=== PATIENT | female | born 1935 | race Caucasian/White ===

== ENCOUNTER 2017-01-18 07:45 | Day surgery (SDC) | payer MEDICARE, BC ==
[~2017-01-18] VITALS: Ht 175.3 cm; Wt 63.5 kg
--- NOTE | 2017-01-18 07:08 | Anethesia Preoperative Eval ---
Anesthesia Pre-op PMH/ROS General Date of Evaluation: Jan 18, 2017 Anesthesiologist: Miguel ASA Score: ASA 3 Mallampati Score Class I : Soft palate, uvula, fauces, pillars visible Class II: Soft palate, uvula, fauces visible Class III: Soft palate, base of uvula visible Class IV: Only hard plate visible Mallampati Classification: Class II Surgeon: Yareli Diagnosis: Left breast cancer Surgical Procedure: Left breast quadrectomy Anesthesia History: none Family History: no anesthesia problems Allergies: Coded Allergies: SULFA (SULFONAMIDE ANTIBIOTICS) (Verified Allergy, Intermediate, 01/18/17) swelling,itching Medications: see eMAR Past Medical History PSxH Narrative: lap appy, rotator cuff repair Anesthesia Pre-op Phys. Exam Physician Exam see chart Constitutional: NAD Cardiovascular: RRR Respiratory: CTA Airway Exam Mallampati Score: Class II MO: limited ROM: limited Anesthesia Pre-op A/P Labs see chart Studies Pre-op Studies: EKG - sr Risk Assessment & Plan Assessment: ASA III Plan: GA Status Change Before Surgery: No Pre-Antibiotics Drug: JOHNNIE CARDENAS M.D. Jan 18, 2017 07:07
[2017-01-18] MEDS ORDERED: LISINOPRIL20 MG ORAL (08:39)
[2017-01-18] MEDS ORDERED: PRAVASTATIN SOD40 M1 ORAL (08:39)
[2017-01-18] MEDS ORDERED: Bupivacaine w/Epi 0.5% 30ml Vial INJ ONE (08:39)
[2017-01-18] MEDS ORDERED: IMDUR PO (08:39)
[2017-01-18] MEDS ORDERED: AMLODIPINE BESY10 MG ORAL (08:39)
[2017-01-18] MEDS ORDERED: HYDROCHLOROTHIA25 MG ORAL (08:39)
[2017-01-18] MEDS ORDERED: DETROL2 MG ORAL (08:39)
[2017-01-18] MEDS ORDERED: METOPROLOL TART50 M1 ORAL (08:39)
[2017-01-18] MEDS ORDERED: BUSPIRONE HCL15 MG ORAL (08:39)
[2017-01-18] MEDS ORDERED: LEXAPRO20 MG ORAL (08:39)
[2017-01-18 08:48] VITALS: BP 95/46
[2017-01-18 09:25] VITALS: BP 97/48
[2017-01-18] MEDS ORDERED: HYDROmorphone 1mg/ml Carpuject SUBQ PRN (09:30)
[2017-01-18] MEDS ORDERED: Tylenol #3 tab (300mg/30mg) ORAL PRN (09:30)
--- NOTE | 2017-01-18 09:38 | Brief Operative Note ---
Immediate Post Operative Note Operative Note Pre-op Diagnosis: cholelithiasis, chronic cholecystitis Procedure: laparoscopic cholecystectomy Post-op Diagnosis: same as pre-op Surgeon: courtney Warp Knitter: melissa Anesthesiologist: jude Anesthesia: general Specimen: yes - gb Complications: none Condition: stable Estimated Blood Loss: minimal Drains: none Implant(s) used?: No SEBASTIÁN CRUZ Jan 18, 2017 09:38
== END 2017-01-18 10:00 | disposition home or self-care (01) ==
LOC: SUR 07:45
DX: C50.912 Malignant neoplasm of unspecified site of left female breast (principal); Z53.8 Procedure and treatment not carried out for other reasons; N32.81 Overactive bladder; G89.29 Other chronic pain; Z88.2 Allergy status to sulfonamides; Z88.8 Allergy status to other drugs, medicaments and biological substances

== ENCOUNTER 2017-03-06 19:04 | Inpatient (IN) | payer MEDICARE, BC ==
[~2017-03-06] VITALS: Ht 175.3 cm; Wt 63.5 kg
[~2017-03-06 19:04] MED LIST: AMLODIPINE BESY10 MG ORAL; BUSPIRONE HCL15 MG ORAL; DETROL2 MG ORAL; HYDROCHLOROTHIA25 MG ORAL; IMDUR PO; LEXAPRO20 MG ORAL; LISINOPRIL20 MG ORAL; METOPROLOL TART50 M1 ORAL; PRAVASTATIN SOD40 M1 ORAL
--- NOTE | 2017-03-06 19:59 | Emergency Room Report ---
History of Present Illness General Chief Complaint: Lower Extremity Injury Source: Patient Present Illness HPI This patient presents at the request of her primary care physician. The patient is postop day 5 from a left mastectomy. She has breast cancer. She was discharged from [facility] into the care of her elderly . He states that he has been able to care for her, however, over the past 2 days she has had confusion and had been pulling at her NONA drains in her left chest wall and pulling off her post surgical dressings. She fell twice early this morning. She has been on narcotics. She has a history of chronic pain and chronic narcotic use. She has been taking maximum dosages of the Percocet. He hasn't states that her confusion is usually after the Percocet. She fell this morning and was seen at [facility]. She is found to have a left fibula fracture and underwent splinting. She left from there AGAINST MEDICAL ADVICE because her primary care physician does not admit there. Further review of the discharge paperwork shows that this patient underwent a CT of the C-spine, CT head, left ankle x-ray and chest x-ray. The left ankle showed a left fibula fracture. He has been is concerned that he cannot care for her and that she is falling. He feels that she is not safe in her home. Allergies: Coded Allergies: SULFA (SULFONAMIDE ANTIBIOTICS) (Verified Allergy, Intermediate, 01/18/17) swelling,itching Patient History Past Medical History: see triage record, GERD, other - Arthritis, chronic pain Social History: Denies: smoking, alcohol use, drug use Now: No Reviewed Nursing Documentation: PMH: Agreed, PSxH: Agreed Nursing Documentation-PMH Past Medical History: No History, Except For Hx Cardiac Problems: Yes Hx Hypertension: Yes Hx Cancer: No Hx Gastrointestinal Problems: Yes Hx Neurological Problems: No Review of Systems All Other Systems: negative except mentioned in HPI Physical Exam Vital Signs Date Time Temp Pulse Resp B/P (MAP) Pulse Ox O2 Delivery O2 Flow Rate FiO2 03/06/17 19:23 98.8 78 16 163/71 99 Room Air Sp02 EP Interpretation: reviewed, normal General Appearance: no apparent distress, alert, GCS 15, non-toxic Head: normocephalic, other - Ecchymosis on L. forehead Eyes: bilateral eye normal inspection, bilateral eye PERRL ENT: hearing grossly normal, normal pharynx, no angioedema, normal voice Neck: full range of motion, supple/symm/no masses Respiratory: chest non-tender, lungs clear, normal breath sounds, no respiratory distress, no retraction, no accessory muscle use, speaking full sentences, other - Ecchymosis L. chest wall. Post-operative wound with jaja. x2 NONA drains w/ serosanguinous drainage. Cardiovascular #1: regular rate, rhythm, no edema, systolic murmur Gastrointestinal: normal bowel sounds, non tender, soft, non-distended, no guarding, no rebound Rectal: deferred Musculoskeletal: back normal, other - Stirrup splint on L. ankle/foot. Neurologic: alert, oriented x3, responsive, motor strength/tone normal, sensory intact, speech normal Psychiatric: judgement/insight normal, mood/affect normal, no suicidal/ homicidal ideation Skin: warm/dry, well hydrated, other - Ecchymosis as described above. Medical Decision Making Diagnostic Impression: Primary Impression: Fibula fracture Additional Impressions: Uncontrolled pain Frequent falls Adverse effect of narcotic drug ER Course This patient presents with a left fibular fracture and frequent falls. This elderly female is unsafe at her home. She likely is having fracture related to a strong doses of narcotics and is dangerous to herself with pulling off her postoperative dressings and NONA drains that are placed in her chest wall. She has an ankle fracture. She is confused to removing medical devices. He has been is unable to provide appropriate care for her. She is admitted secondary to danger to her self and for a possible revision of her living situation versus placement in a correction facility. Laboratory Tests Test 03/06/17 20:50 White Blood Count 5.8 K/UL (4.8-10.8) Red Blood Count 3.01 M/UL (4.20-5.40) L Hemoglobin 10.9 G/DL (12.0-16.0) L Hematocrit 32.4 % (37.0-47.0) L Mean Corpuscular Volume 107 FL (80-99) H Mean Corpuscular Hemoglobin 36.0 PG (27.0-31.0) H Mean Corpuscular Hemoglobin Concent 33.6 G/DL (32.0-36.0) Red Cell Distribution Width 14.1 % (11.6-14.8) Platelet Count 169 K/UL (150-450) Mean Platelet Volume 5.8 FL (6.5-10.1) L Neutrophils (%) (Auto) 70.9 % (45.0-75.0) Lymphocytes (%) (Auto) 19.4 % (20.0-45.0) L Monocytes (%) (Auto) 7.8 % (1.0-10.0) Eosinophils (%) (Auto) 0.4 % (0.0-3.0) Basophils (%) (Auto) 1.5 % (0.0-2.0) Prothrombin Time 11.4 SEC (9.30-11.50) Prothrombin Time INR 1.1 (0.9-1.1) PTT 28 SEC (23-33) Sodium Level 138 mEQ/L (135-145) Potassium Level 4.1 mEQ/L (3.4-4.9) Chloride Level 105 mEQ/L (98-107) Carbon Dioxide Level 22 mEQ/L (20-30) Anion Gap 11 (5-15) Blood Urea Nitrogen 10 mg/dL (7-23) Creatinine 0.6 mg/dL (0.5-0.9) Estimate Glomerular Filtration Rate mL/min (>60) Glucose Level 86 mg/dL (74-106) Calcium Level 9.4 mg/dL (8.6-10.2) Total Bilirubin 0.8 mg/dL (0.0-1.2) Aspartate Amino Transferase (AST) 28 U/L (5-40) Alanine Aminotransferase (ALT) 5 U/L (3-33) Alkaline Phosphatase 113 U/L (35-104) H Total Protein 5.1 g/dL (6.6-8.7) L Albumin 2.6 g/dL (3.5-5.2) L Globulin 2.5 g/dL Albumin/Globulin Ratio 1.0 (1.0-2.7) Last Vital Signs Date Time Temp Pulse Resp B/P (MAP) Pulse Ox O2 Delivery O2 Flow Rate FiO2 03/06/17 19:23 98.8 78 16 163/71 99 Room Air Disposition: ADMITTED INPATIENT Condition: Serious Referrals: DANIEL COCHRAN (PCP) RUBENS DE PAZ D.O. Mar 06, 2017 19:58
[2017-03-06 21:16] LABS: BASOPHILS % (AUTO) 1.5 % (0.0-2.0); EOSINOPHILS % (AUTO) 0.4 % (0.0-3.0); LYMPHOCYTES % (AUTO) 19.4 % (20.0-45.0); MEAN CORPUSCULAR HGB CONC 33.6 G/DL (32.0-36.0); MEAN CORPUSCULAR VOLUME 107 FL (80-99); MEAN PLATELET VOLUME 5.8 FL (6.5-10.1); MONOCYTES % (AUTO) 7.8 % (1.0-10.0); NEUTROPHILS % (AUTO) 70.9 % (45.0-75.0); PLATELET COUNT 169 K/UL (150-450); RED BLOOD COUNT 3.01 M/UL (4.20-5.40); RED CELL DISTRIBUTION WIDTH 14.1 % (11.6-14.8); WHITE BLOOD COUNT 5.8 K/UL (4.8-10.8)
[2017-03-06 21:32] LABS: INR 1.1 (0.9-1.1); PROTHROMBIN TIME 11.4 SEC (9.30-11.50)
[2017-03-06 21:33] LABS: ALANINE AMINOTRANSFERASE 5 U/L (3-33); ANION GAP 11 (5-15); ASPARTATE AMINO TRANSFERASE 28 U/L (5-40); CALCIUM 9.4 mg/dL (8.6-10.2); CARBON DIOXIDE 22 mEQ/L (20-30); CHLORIDE 105 mEQ/L (98-107); CREATININE 0.6 mg/dL (0.5-0.9); HEMOLYSIS 97; POTASSIUM 4.1 mEQ/L (3.4-4.9); SODIUM 138 mEQ/L (135-145); TOTAL PROTEIN 5.1 g/dL (6.6-8.7)
[2017-03-07] VITALS: BP 142/64
[2017-03-07 04:00] VITALS: BP 142/68
[2017-03-07 06:37] LABS: BASOPHILS % (AUTO) 1.6 % (0.0-2.0); EOSINOPHILS % (AUTO) 1.1 % (0.0-3.0); LYMPHOCYTES % (AUTO) 26.7 % (20.0-45.0); MEAN CORPUSCULAR HEMOGLOBIN 35.4 PG (27.0-31.0); MEAN CORPUSCULAR HGB CONC 33.6 G/DL (32.0-36.0); MEAN CORPUSCULAR VOLUME 105 FL (80-99); MEAN PLATELET VOLUME 5.5 FL (6.5-10.1); NEUTROPHILS % (AUTO) 60.5 % (45.0-75.0); PLATELET COUNT 169 K/UL (150-450); RED BLOOD COUNT 2.83 M/UL (4.20-5.40); RED CELL DISTRIBUTION WIDTH 13.8 % (11.6-14.8); WHITE BLOOD COUNT 4.7 K/UL (4.8-10.8)
[2017-03-07 07:04] LABS: ALANINE AMINOTRANSFERASE 5 U/L (3-33); ALBUMIN/GLOBULIN RATIO 1.3 (1.0-2.7); ANION GAP 9 (5-15); ASPARTATE AMINO TRANSFERASE 19 U/L (5-40); CALCIUM 8.8 mg/dL (8.6-10.2); CARBON DIOXIDE 24 mEQ/L (20-30); CHLORIDE 104 mEQ/L (98-107); CREATININE 0.6 mg/dL (0.5-0.9); HEMOLYSIS 5; POTASSIUM 4.2 mEQ/L (3.4-4.9); SODIUM 137 mEQ/L (135-145); TOTAL PROTEIN 4.6 g/dL (6.6-8.7)
[2017-03-07 07:14] LABS: THYROID STIMULATING HORMONE 0.511 uIU/mL (0.300-4.500)
[2017-03-07 08:00] VITALS: BP 161/66
[2017-03-07] MEDS ORDERED: NAMENDA10 MG ORAL (10:30)
[2017-03-07] MEDS ORDERED: VITAMIN D-40400 UNIT ORAL (10:30)
[2017-03-07] MEDS ORDERED: PRAVACHOL20 MG ORAL (10:30)
[2017-03-07] MEDS ORDERED: VITAMIN C250 MG ORAL (10:30)
--- NOTE | 2017-03-07 10:44 | General Surgery Progress Note ---
General Surgery-Progress Note Subjective Procedure Performed left modified radical mastectomy at [facility] 6 days ago. Symptoms: improved Additional Comments Pt had L Mod radiacal mastectomy for large left breast lobular CA, drains still in place. She became confused las 2 nights and fell and had a Fracture of left tibia. 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 Objective Last 24 Hour Vital Signs Date Time Temp Pulse Resp B/P (MAP) Pulse Ox O2 Delivery O2 Flow Rate FiO2 03/07/17 08:00 98.1 76 18 161/66 97 Room Air 03/07/17 04:00 98.8 80 20 142/68 98 Room Air 03/07/17 00:00 98.2 77 20 142/64 98 Room Air 03/06/17 23:30 89 20 133/89 99 Room Air 03/06/17 19:23 98.8 78 16 163/71 99 Room Air I&O hemovac about 100 cc/24 hrs Dressing: dry Wound: clean Drains: hemovac Cardiovascular: RSR Respiratory: clear Abdomen: soft, non-tender, present bowel sounds Extremities: other - left leg in inmobilizing splint, toes OK Laboratory Tests Test 03/06/17 20:50 03/07/17 06:15 White Blood Count 5.8 K/UL (4.8-10.8) 4.7 K/UL (4.8-10.8) L Red Blood Count 3.01 M/UL (4.20-5.40) L 2.83 M/UL (4.20-5.40) L Hemoglobin 10.9 G/DL (12.0-16.0) L 10.0 G/DL (12.0-16.0) L Hematocrit 32.4 % (37.0-47.0) L 29.8 % (37.0-47.0) L Mean Corpuscular Volume 107 FL (80-99) H 105 FL (80-99) H Mean Corpuscular Hemoglobin 36.0 PG (27.0-31.0) H 35.4 PG (27.0-31.0) H Mean Corpuscular Hemoglobin Concent 33.6 G/DL (32.0-36.0) 33.6 G/DL (32.0-36.0) Red Cell Distribution Width 14.1 % (11.6-14.8) 13.8 % (11.6-14.8) Platelet Count 169 K/UL (150-450) 169 K/UL (150-450) Mean Platelet Volume 5.8 FL (6.5-10.1) L 5.5 FL (6.5-10.1) L Neutrophils (%) (Auto) 70.9 % (45.0-75.0) 60.5 % (45.0-75.0) Lymphocytes (%) (Auto) 19.4 % (20.0-45.0) L 26.7 % (20.0-45.0) Monocytes (%) (Auto) 7.8 % (1.0-10.0) 10.0 % (1.0-10.0) Eosinophils (%) (Auto) 0.4 % (0.0-3.0) 1.1 % (0.0-3.0) Basophils (%) (Auto) 1.5 % (0.0-2.0) 1.6 % (0.0-2.0) Prothrombin Time 11.4 SEC (9.30-11.50) Prothromb Time International Ratio 1.1 (0.9-1.1) Activated Partial Thromboplast Time 28 SEC (23-33) Sodium Level 138 mEQ/L (135-145) 137 mEQ/L (135-145) Potassium Level 4.1 mEQ/L (3.4-4.9) 4.2 mEQ/L (3.4-4.9) Chloride Level 105 mEQ/L (98-107) 104 mEQ/L (98-107) Carbon Dioxide Level 22 mEQ/L (20-30) 24 mEQ/L (20-30) Anion Gap 11 (5-15) 9 (5-15) Blood Urea Nitrogen 10 mg/dL (7-23) 8 mg/dL (7-23) Creatinine 0.6 mg/dL (0.5-0.9) 0.6 mg/dL (0.5-0.9) Estimat Glomerular Filtration Rate mL/min (>60) mL/min (>60) Glucose Level 86 mg/dL (74-106) 82 mg/dL (74-106) Calcium Level 9.4 mg/dL (8.6-10.2) 8.8 mg/dL (8.6-10.2) Total Bilirubin 0.8 mg/dL (0.0-1.2) 0.8 mg/dL (0.0-1.2) Aspartate Amino Transf (AST/SGOT) 28 U/L (5-40) 19 U/L (5-40) Alanine Aminotransferase (ALT/SGPT) 5 U/L (3-33) 5 U/L (3-33) Alkaline Phosphatase 113 U/L (35-104) H 112 U/L (35-104) H Total Protein 5.1 g/dL (6.6-8.7) L 4.6 g/dL (6.6-8.7) L Albumin 2.6 g/dL (3.5-5.2) L 2.6 g/dL (3.5-5.2) L Globulin 2.5 g/dL 2.0 g/dL Albumin/Globulin Ratio 1.0 (1.0-2.7) 1.3 (1.0-2.7) Thyroid Stimulating Hormone (TSH) 0.511 uIU/mL (0.300-4.500) Imaging pending fibular xray results. Additional Comments S/P left mastectomy for large lobular CA Confusion, altered mental status and fall with left fibular fx. Hx Percocet and wine use, ? abuse. Alzheimer's changes. HTN Assessment Additional Comments Cont drain care, Ortho consult, once stabilized and definitive leg care started , transfer to [facility] for further care. Discussed with nurses and Dr. Lagunas. PMD is Dr. Walton who wanted pt transferred here. (but does not come here anymore) SEBASTIÁN CRUZ Mar 07, 2017 10:44
--- NOTE | 2017-03-07 10:59 | Diagnostic Imaging Report ---
Indication: TRAUMA, fell 3 times Technique: 2 views of the right tibia and fibula Comparison: none Findings: Overlying splint obscures bony detail. There is a nondisplaced vertically oriented fracture of the distal fibula. This is better visualized on concurrent ankle radiograph. No definite tibial fracture. Impression: Positive for nondisplaced distal fibular fracture
--- NOTE | 2017-03-07 11:08 | Diagnostic Imaging Report ---
Indication: TRAUMA Technique: 3 views of the left ankle Comparison: none Findings: There is a vertically oriented fracture of the distal fibula. This is nondisplaced. No definite tibial fracture or talar fracture. Bones are somewhat osteoporotic. Overlying splint obscures bony detail to some extent. Impression: Positive for distal fibular fracture
[2017-03-07] MEDS: Metoprolol 25mg tab ORAL SCH ×2 (11:50→20:06)
[2017-03-07 11:57] VITALS: BP 140/77
--- NOTE | 2017-03-07 13:14 | Consultation ---
Consult Note Consult Note 81 yo female s/p breast surgery with dizziness at home last night. fell and sustained non displaced distal fibular fracture Assessment/Plan left ankle non displaced distal fibular fracture no surgery needed. splint immobilization x1 week with transition to cast for 4 full weeks followed by physical therapy. can follow as an outpt NISHA SAMSON Mar 07, 2017 13:14
[2017-03-07 15:57] VITALS: BP 142/64
[2017-03-07] MEDS: BusPIRone 5mg Tab ORAL SCH (18:00)
--- NOTE | 2017-03-07 19:16 | History & Physical ---
History and Physical History & Physicial dictated GIANFRANCO LANTIGUA Mar 07, 2017 19:16
[2017-03-07 20:00] VITALS: BP 151/71
[2017-03-07] MEDS: Memantine 10mg tab ORAL SCH (20:07)
[2017-03-07] MEDS: Multivitamin w/Minerals tab ORAL SCH (20:07)
--- NOTE | 2017-03-07 23:45 | Consultation ---
DATE OF CONSULTATION: ORTHOPEDIC CONSULTATION History Of Present Illness: The patient is a very pleasant 81-year-old female, who had a mechanical fall in her home yesterday sustaining a left ankle nondisplaced distal fibular fracture. The patient recently had breast surgery and was discharged home. She woke up in pain and wants to take medications. She has some dizziness and had a trip and fall at home. Her brought her to the hospital and she was noted to have ankle fracture for which Orthopedic consult was called. The patient denies numbness or tingling. She is already in a well-padded splint. PAST MEDICAL HISTORY: Breast cancer and GERD. PAST SURGICAL HISTORY: Recent breast surgery. CURRENT MEDICATIONS: Please see chart. Social History: She does not smoke or drink. She lives at home with her . She is independent with her activities. Review Of Systems: Reviewed. They are consistent with some pain around her left breast and chest though she had mastectomy. She has some left ankle pain as well. She denies numbness or tingling. She denies any fever, chills, cough, or shortness of breath. PHYSICAL EXAMINATION: General: She is a very pleasant woman. She is cooperative with examination. She is alert and oriented. Extremities: Her left lower extremity is in a well-padded splint and she is neurovascularly intact and able to wiggle her toes. Diagnostic Data: X-rays were reviewed. There is a nondisplaced distal fibular fracture without disruption of the mortise. Impression: Left ankle nondisplaced distal fibular fracture with intact mortise. Discussion: At this time, I discussed with the patient and her my findings. We can treat nonoperatively with this and keep her in a splint for 7 to 10 days, at which point we will exchange her splint for a well-padded cast for a total of four weeks immobilization. After the cast, she will likely be in a CAM walker for short time as we restart physical therapy and allow her to be progressively weightbearing. We will ask the patient to elevate and ice this and from an orthopedic standpoint, she is stable for discharge once cleared medically. We will follow up with her on an outpatient basis. Geovani Rodriguez M.D. Flakito Arora DR: Cony JOB#: [id number] CC:
[2017-03-08 04:00] VITALS: BP 175/89
[2017-03-08 07:52] LABS: ALANINE AMINOTRANSFERASE 5 U/L (3-33); ALBUMIN/GLOBULIN RATIO 1.2 (1.0-2.7); ANION GAP 10 (5-15); ASPARTATE AMINO TRANSFERASE 17 U/L (5-40); CALCIUM 8.9 mg/dL (8.6-10.2); CARBON DIOXIDE 24 mEQ/L (20-30); CHLORIDE 106 mEQ/L (98-107); CREATININE 0.5 mg/dL (0.5-0.9); HEMOLYSIS 3; POTASSIUM 3.4 mEQ/L (3.4-4.9); SODIUM 140 mEQ/L (135-145); TOTAL PROTEIN 4.8 g/dL (6.6-8.7)
[2017-03-08 07:56] LABS: BASOPHILS % (AUTO) 1.3 % (0.0-2.0); EOSINOPHILS % (AUTO) 1.1 % (0.0-3.0); LYMPHOCYTES % (AUTO) 23.4 % (20.0-45.0); MEAN CORPUSCULAR HEMOGLOBIN 35.1 PG (27.0-31.0); MEAN CORPUSCULAR VOLUME 107 FL (80-99); MEAN PLATELET VOLUME 4.9 FL (6.5-10.1); MONOCYTES % (AUTO) 8.6 % (1.0-10.0); NEUTROPHILS % (AUTO) 65.6 % (45.0-75.0); PLATELET COUNT 181 K/UL (150-450); RED BLOOD COUNT 3.11 M/UL (4.20-5.40); RED CELL DISTRIBUTION WIDTH 14.6 % (11.6-14.8)
[2017-03-08 08:00] VITALS: BP 162/86
[2017-03-08] MEDS: Vitamin D 400 INTLU TAB ORAL SCH (08:03)
[2017-03-08] MEDS: Multivitamin w/Minerals tab ORAL SCH (08:07)
[2017-03-08] MEDS: Metoprolol 25mg tab ORAL SCH ×2 (08:07→20:10)
[2017-03-08] MEDS: Memantine 10mg tab ORAL SCH ×2 (08:07→20:10)
[2017-03-08] MEDS: Ascorbic Acid 500mg tab ORAL SCH (08:08)
[2017-03-08] MEDS: BusPIRone 5mg Tab ORAL SCH ×2 (08:11→17:21)
[2017-03-08] MEDS: Tolterodine 2mg tab ORAL SCH (08:11)
--- NOTE | 2017-03-08 08:32 | History and Physical Report ---
DATE OF ADMISSION: 03/06/2017 History of present illness: The patient is a 81-year-old woman, who was transferred here from [facility] emergency room for admission because of a fall with left distal tibia and fibula fracture. Apparently, she was confused and unsteady on her feet after taking narcotics following a recent mastectomy. She fell and suffered a fracture. She does not have any recollection of what happened. Past medical history: The patient was discharged from [facility] on 03/02/2017 after a left modified radical mastectomy by Dr. Downs. She has drains in place. She was given pain medication, which apparently she has been taking excessively as well as taking excessive alcohol. There is a history of gastric bypass surgery in 2000, gastric ulcers since age 22, coronary stenting in January 2010, hypertension, depression, anxiety, arthritis, and some dementia. She was hospitalized to [facility] in July 2016 with a brain contusion. Medications: Hydrochlorothiazide, Robaxin, Pravachol, metoprolol, lisinopril, amlodipine, Lexapro, Effient, trazodone, nitroglycerin, and BuSpar. ALLERGIES: Sulfonamides. Social history: She smokes currently and drinks about half or more bottle of Nevin daily. REVIEW OF SYSTEMS: Otherwise unremarkable. PHYSICAL EXAMINATION: General: The patient is alert and responds appropriately, but has a limited fund of knowledge and memory. Vital signs: Blood pressure is somewhat elevated. There is no fever. The other vital signs are normal. SKIN: Her skin is heavily wrinkled. HEENT: Head is normocephalic with no signs of trauma. NECK: No jugular venous distention. CHEST: Clear. CARDIAC: Rhythm is regular. ABDOMEN: Soft and nontender. EXTREMITIES: No edema. There is a splint over the left ankle. Diagnostic data: X-ray shows a vertical fracture of the distal fibula. There is no definite fracture of the tibia or talus. Laboratory studies: Hemoglobin is 10, hematocrit is 30, and platelets are normal. The MCV is 107. Chemistry shows normal kidney function. Albumin is 2.6 and alkaline phosphatase is mildly elevated at 112. The coagulation parameters are normal. IMPRESSION: 1. Status post fall with left fibula fracture. 2. Unsteady gait and confusion due to underlying dementia and narcotic and alcohol effects. 3. Hypertension. 4. Coronary heart disease, status post stenting. 5. Status post gastric bypass surgery. Plan: The patient will be seen by Orthopedics. If she does not require surgery, it is likely she will need to go to shelter for management of her multiple health issues and unsteady gait. Kulwinder Lagunas M.D. DR: Nik JOB#: [id number] CC:
--- NOTE | 2017-03-08 10:47 | General Surgery Progress Note ---
General Surgery-Progress Note Subjective Procedure Performed left modified radical mastectomy at [facility] 7 days ago. Symptoms: improved Additional Comments Confused and combative again last night. 4 nurses had to hold her down. Now has sitter. Objective Last 24 Hour Vital Signs Date Time Temp Pulse Resp B/P (MAP) Pulse Ox O2 Delivery O2 Flow Rate FiO2 03/08/17 08:07 72 162/86 03/08/17 08:00 96.5 72 18 162/86 98 Room Air 03/08/17 04:00 97.3 62 20 175/89 96 Room Air 03/07/17 20:06 60 151/71 03/07/17 20:00 97.7 60 19 151/71 99 Room Air 03/07/17 15:57 97.0 53 18 142/64 97 Room Air 03/07/17 14:02 98.0 03/07/17 11:57 98.0 74 18 140/77 99 Room Air 03/07/17 11:50 76 161/66 I&O Still 375 cc/24 hrs through Hemovac! Serosanguinous. Dressing: dry Wound: clean Drains: hemovac - irrigated with NS Cardiovascular: RSR Respiratory: clear Abdomen: soft Extremities: edema, other - left leg in splint Laboratory Tests Test 03/08/17 06:30 White Blood Count 5.0 K/UL (4.8-10.8) Red Blood Count 3.11 M/UL (4.20-5.40) L Hemoglobin 10.9 G/DL (12.0-16.0) L Hematocrit 33.1 % (37.0-47.0) L Mean Corpuscular Volume 107 FL (80-99) H Mean Corpuscular Hemoglobin 35.1 PG (27.0-31.0) H Mean Corpuscular Hemoglobin Concent 33.0 G/DL (32.0-36.0) Red Cell Distribution Width 14.6 % (11.6-14.8) Platelet Count 181 K/UL (150-450) Mean Platelet Volume 4.9 FL (6.5-10.1) L Neutrophils (%) (Auto) 65.6 % (45.0-75.0) Lymphocytes (%) (Auto) 23.4 % (20.0-45.0) Monocytes (%) (Auto) 8.6 % (1.0-10.0) Eosinophils (%) (Auto) 1.1 % (0.0-3.0) Basophils (%) (Auto) 1.3 % (0.0-2.0) Sodium Level 140 mEQ/L (135-145) Potassium Level 3.4 mEQ/L (3.4-4.9) Chloride Level 106 mEQ/L (98-107) Carbon Dioxide Level 24 mEQ/L (20-30) Anion Gap 10 (5-15) Blood Urea Nitrogen 9 mg/dL (7-23) Creatinine 0.5 mg/dL (0.5-0.9) Estimat Glomerular Filtration Rate mL/min (>60) Glucose Level 82 mg/dL (74-106) Calcium Level 8.9 mg/dL (8.6-10.2) Total Bilirubin 0.8 mg/dL (0.0-1.2) Aspartate Amino Transf (AST/SGOT) 17 U/L (5-40) Alanine Aminotransferase (ALT/SGPT) 5 U/L (3-33) Alkaline Phosphatase 119 U/L (35-104) H Total Protein 4.8 g/dL (6.6-8.7) L Albumin 2.7 g/dL (3.5-5.2) L Globulin 2.1 g/dL Albumin/Globulin Ratio 1.2 (1.0-2.7) Additional Comments Stable s/p left Modified radical mastectomy, moderate to high persistent drainage. Left lower lateral fibular fractured, splinted. Confusion, likely part from Percocet and wine detox vs Alzheimer's with ' sundowning' Assessment Post-op Diagnosis Cont as is. Will need to keep Hemovac at least one more week! Critical issue with high output per drain in confused state, problematic if she pulls out drain. To Rehab-SNF after hospitalization, hopefully where I can see her and try to avoid office visits. Discussed with SEBASTIÁN Sparks Mar 08, 2017 10:47
[2017-03-08 12:00] VITALS: BP 153/72
--- NOTE | 2017-03-08 15:13 | General Progress Note ---
Assessment/Plan Assessment/Plan 1. Status post fall with left fibula fracture. 2. Unsteady gait and confusion due to underlying dementia and narcotic and alcohol effects. 3. Hypertension. 4. Coronary heart disease, status post stenting. 5. Status post gastric bypass surgery. 6. S/p L mastectomy w drain in situ added seroquel for agitation, increased dose today added losartan for HTN monitoring pain and excess sedation snf tomorrow Subjective Constitutional: Reports: other - agitated , Denies: fever Allergies: Coded Allergies: SULFA (SULFONAMIDE ANTIBIOTICS) (Verified Allergy, Intermediate, 01/18/17) swelling,itching Subjective c/o pain Objective Last 24 Hour Vital Signs Date Time Temp Pulse Resp B/P (MAP) Pulse Ox O2 Delivery O2 Flow Rate FiO2 03/08/17 12:18 97.3 03/08/17 12:00 97.5 61 18 153/72 99 Room Air 03/08/17 08:07 72 162/86 03/08/17 08:00 96.5 72 18 162/86 98 Room Air 03/08/17 04:00 97.3 62 20 175/89 96 Room Air 03/07/17 20:06 60 151/71 03/07/17 20:00 97.7 60 19 151/71 99 Room Air 03/07/17 15:57 97.0 53 18 142/64 97 Room Air Intake and Output 03/08/17 03/09/17 19:00 07:00 Intake Total 480 ml Output Total 200 ml Balance 280 ml Intake Oral 480 ml Output Urine Total 200 ml # Voids 2 Laboratory Tests 03/08/17 06:30: White Blood Count 5.0, Red Blood Count 3.11L, Hemoglobin 10.9L, Hematocrit 33.1L , Mean Corpuscular Volume 107H, Mean Corpuscular Hemoglobin 35.1H, Mean Corpuscular Hemoglobin Concent 33.0, Red Cell Distribution Width 14.6, Platelet Count 181, Mean Platelet Volume 4.9L, Neutrophils (%) (Auto) 65.6, Lymphocytes ( %) (Auto) 23.4, Monocytes (%) (Auto) 8.6, Eosinophils (%) (Auto) 1.1, Basophils (%) (Auto) 1.3, Sodium Level 140, Potassium Level 3.4, Chloride Level 106, Carbon Dioxide Level 24, Anion Gap 10, Blood Urea Nitrogen 9, Creatinine 0.5, Estimat Glomerular Filtration Rate , Glucose Level 82, Calcium Level 8.9, Total Bilirubin 0.8, Aspartate Amino Transf (AST/SGOT) 17, Alanine Aminotransferase ( ALT/SGPT) 5, Alkaline Phosphatase 119H, Total Protein 4.8L, Albumin 2.7L, Globulin 2.1, Albumin/Globulin Ratio 1.2 Height (Feet): 5 Height (Inches): 9.00 Weight (Pounds): 140 General Appearance: no apparent distress Cardiovascular: normal rate Respiratory/Chest: lungs clear, other - L mastectomy w drain Objective L ankle splint GIANFRANCO LANTIGUA Mar 08, 2017 15:13
[2017-03-08 16:00] VITALS: BP 150/68
[2017-03-08] MEDS: Losartan 50mg tab ORAL SCH (16:17)
[2017-03-08 19:19] VITALS: BP 134/66
[2017-03-09] VITALS: BP 115/60
--- NOTE | 2017-03-09 00:11 | Consultation ---
Consultation Allergies: Coded Allergies: SULFA (SULFONAMIDE ANTIBIOTICS) (Verified Allergy, Intermediate, 01/18/17) swelling,itching Past Medical History 81 yo female with hx of mdd, dementia and mmp. sun downing syndrome. The pt was alert however was a poor historian and answered "don't know" to most questions. the was in the room who provided the hx. the stated that she has been suffering from depression and anxiety lexapro and buspar has not helped and the pt pw confusion. I noted the pt is on pain meds. In addition she wants to return home. agreed the pt may need rehab or jail. Target sxs: depressed and irritable mood, decrease energy, insomnia, waxing and waning of consciousness, impairment of memory, anxiety and agitation. General Appearance: Disheveled, Older Orientation: Person, Situation Attention Span Description: Distractible Mood/Memory: Depressed Affect: Constricted Thought Process: Flight of Idea Thought Content: Paranoid to Delusions Speech: Normal in Volume & Rate Intelligence: Average Insight/ Judgement: Poor Impulse Control: Poor Assessment/Plan Status: stable Assessment/Plan dementia, delirium depression and anxiety -rec to taper down pain meds -pt -dc buspar -lexapro was decrease from 40mg daily to 20mg that is the highest therapeutic level -changed seroquel to risperdal -d/w the surgeon and staff Tali Nugent M.D. Mar 09, 2017 00:11
[2017-03-09 04:03] VITALS: BP 157/69
--- NOTE | 2017-03-09 07:46 | General Surgery Progress Note ---
General Surgery-Progress Note Subjective Symptoms: improved, tolerating diet, passing flatus Additional Comments patient seen and examined at bedside. doing well. no acute events. comfortable. awake and alert but somewhat confused. hemovac functional Objective Last 24 Hour Vital Signs Date Time Temp Pulse Resp B/P (MAP) Pulse Ox O2 Delivery O2 Flow Rate FiO2 03/09/17 07:02 97.7 03/09/17 04:03 97.7 56 20 157/69 98 Nasal Cannula 03/09/17 00:00 98.3 60 19 115/60 97 Room Air 03/08/17 20:10 63 134/66 03/08/17 19:19 98.4 63 20 134/66 98 Room Air 03/08/17 16:17 150/68 03/08/17 16:00 98.6 62 18 150/68 99 Room Air 03/08/17 12:00 97.5 61 18 153/72 99 Room Air 03/08/17 08:07 72 162/86 03/08/17 08:00 96.5 72 18 162/86 98 Room Air Dressing: dry Wound: clean, dry, intact Drains: hemovac Cardiovascular: RSR Respiratory: clear Abdomen: soft, flat, non-tender Extremities: no edema, no cyanosis Assessment Post-op Diagnosis Hemovac still has fair amount of output. will need for another week or so. D/C planning from surgical standpoint. will follow for mastectomy wound and drain monitoring while here and at SNF upon discharge David Sargent Mar 09, 2017 07:46
[2017-03-09 08:02] VITALS: BP 112/55
[2017-03-09] MEDS: Losartan 50mg tab ORAL SCH (09:00)
[2017-03-09] MEDS: Metoprolol 25mg tab ORAL SCH (09:00)
[2017-03-09] MEDS: Ascorbic Acid 500mg tab ORAL SCH (09:53)
[2017-03-09] MEDS: Vitamin D 400 INTLU TAB ORAL SCH (09:56)
[2017-03-09] MEDS: Memantine 10mg tab ORAL SCH (09:56)
[2017-03-09] MEDS: Multivitamin w/Minerals tab ORAL SCH (09:56)
[2017-03-09] MEDS: Tolterodine 2mg tab ORAL SCH (10:01)
--- NOTE | 2017-03-09 10:14 | Geriatric Progress Note ---
Assessment/Plan Assessment/Plan MDD opioid dependence, med seeking behavior -lexapro 20mg qam -risperdal 1mg qhs -pt/ot -d/w staff and Discussed with: patient Subjective Mood/Memory: Reports: prior hx, anxiety, depressed feelings, emotional problems Psychiatric: Reports: hallucinations Subjective the pt cont to have med seeking behavior. the pt slept better. less agitated. could not remember the discussion we had yesterday. the pt needed 75% assistance in pt. Geriatric Geriatric Last 24 Hour Vital Signs Date Time Temp Pulse Resp B/P (MAP) Pulse Ox O2 Delivery O2 Flow Rate FiO2 03/09/17 08:02 97.7 60 19 112/55 97 Room Air 03/09/17 07:02 97.7 03/09/17 04:03 97.7 56 20 157/69 98 Nasal Cannula 03/09/17 00:00 98.3 60 19 115/60 97 Room Air 03/08/17 20:10 63 134/66 03/08/17 19:19 98.4 63 20 134/66 98 Room Air 03/08/17 16:17 150/68 03/08/17 16:00 98.6 62 18 150/68 99 Room Air 03/08/17 12:00 97.5 61 18 153/72 99 Room Air Current Medications Medications (Trade) Dose Ordered Sig/Sarmad Route PRN Reason Start Time Stop Time Status Last Admin Dose Admin Acetaminophen (Tylenol) 650 mg Q4H PRN ORAL Mild Pain/Temp > 100.5 03/07/17 10:45 04/06/17 10:44 Ascorbic Acid (Vitamin C) 250 mg DAILY ORAL 03/08/17 09:00 04/07/17 08:59 03/09/17 09:53 Escitalopram Oxalate (Lexapro) 20 mg DAILY ORAL 03/09/17 09:00 04/06/17 20:59 03/09/17 09:55 Losartan Potassium (Cozaar) 50 mg DAILY ORAL 03/08/17 15:30 04/07/17 15:29 03/08/17 16:17 Memantine (Namenda) 10 mg Q12HR ORAL 03/07/17 21:00 04/06/17 20:59 03/09/17 09:56 Metoprolol Tartrate (Lopressor) 25 mg Q12HR ORAL 03/07/17 11:00 10/13/17 10:59 03/08/17 20:10 Multivitamins Therapeutic (Therapeutic Multivitamin) 1 ea DAILY ORAL 03/07/17 19:45 04/06/17 19:44 03/09/17 09:56 Oxycodone/ Acetaminophen (Percocet 10/325) 1 tab Q4H PRN ORAL For Pain 03/06/17 21:45 03/13/17 21:44 03/09/17 09:55 Pravastatin Sodium (Pravachol) 40 mg BEDTIME ORAL 03/07/17 21:00 04/06/17 20:59 03/08/17 20:10 Risperidone (RisperDAL) 1 mg BEDTIME ORAL 03/09/17 21:00 04/08/17 20:59 Tolterodine Tartrate (Detrol) 4 mg DAILY ORAL 03/08/17 09:00 04/07/17 08:59 03/09/17 10:01 Vitamin D (Vitamin D) 400 intlu DAILY ORAL 03/08/17 09:00 04/07/17 08:59 03/09/17 09:56 Height (Feet): 5 Height (Inches): 9.00 Weight (Pounds): 140 General Appearance: well appearing, well groomed, no apparent distress, alert, good eye contact, appears stated age Neurologic: alert, responsive Psychiatric Behavior: cooperative Language/Speech: intact Orientation: person, place, situation Affect: appropriate Insight: Tali Fairchild M.D. Mar 09, 2017 10:14
[2017-03-09 11:54] VITALS: BP 137/62
[2017-03-09] MEDS ORDERED: RISPERDAL1 MG ORAL (12:13)
[2017-03-09] MEDS ORDERED: LEXAPRO10 MG ORAL (12:13)
[2017-03-09] MEDS ORDERED: COZAAR50 MG ORAL (12:13)
[2017-03-09] MEDS ORDERED: PERCOCET 10-321 EACH ORAL (12:13)
[2017-03-09] MEDS ORDERED: Miralax 17gm pkt ORAL ONE (14:00)
--- NOTE | 2017-03-12 07:59 | Discharge Summary ---
Discharge Summary Hospital Course Date of Admission Mar 06, 2017 at 19:58 Date of Discharge Mar 09, 2017 at 14:38 Admitting Diagnosis FIBULA FX, FALLS, POST-OP PAIN HPI Glory Valderrama is a 81 year old female who was admitted on Mar 06, 2017 at 19:58 for Fibula Fracture,Post Operation Pain Hospital Course dc summary #[id number] Discharge Medications New Medications: Escitalopram Oxalate* (Lexapro*) 10 Mg Tablet 20 MG ORAL DAILY, #30 TAB Losartan Potassium* (Cozaar*) 50 Mg Tablet 50 MG ORAL DAILY, #30 TAB Oxycodone Hcl/Acetaminophen 10-325 Mg Tablet (Percocet 10-325 Mg Tablet*) 1 Each Tablet 1 TAB ORAL Q4H PRN, #120 TAB Risperidone* (Risperdal*) 1 Mg Tablet 1 MG ORAL BEDTIME, #30 TAB Continued Medications: Ascorbic Acid* (Vitamin C*) 250 Mg Tablet 250 MG ORAL DAILY, #30 TAB 0 Refills Cholecalciferol (Vitamin D3) (Vitamin D-400*) 400 Unit Tablet 400 UNITS ORAL DAILY, #10 TAB 0 Refills Memantine Hcl* (Namenda*) 10 Mg Tablet 10 MG ORAL BID, TAB Metoprolol Tartrate* (Metoprolol Tartrate*) 50 Mg Tablet 50 MG ORAL DAILY, TAB Pravastatin Sod* (Pravachol*) 20 Mg Tablet 40 MG ORAL BEDTIME, TAB Tolterodine Tartrate* (Detrol*) 2 Mg Tablet 4 MG ORAL DAILY, TAB Discharge Condition Upon Discharge: stable Discharge Disposition Patient was discharged to SNF/Subacute Facility(03) Discharge Diagnoses: Discharge Instructions Discharge Instructions Special Instructions I have been assigned to complete a D/C Summary on this account. I was not involved in the patient management Keely Aldridge NP ([place]) Mar 12, 2017 07:59
--- NOTE | 2017-03-13 06:45 | Discharge Summary 2 SIG ---
DATE OF ADMISSION: 03/06/2017 DATE OF DISCHARGE: 03/09/2017 Reason For Admission: 81-year-old female, who had recently undergone left modified radical mastectomy for left breast cancer at [facility], fell and was seen at [facility] where she was diagnosed with left fibular fracture. At that time, the patient underwent splinting since left ankle x-ray showed left fibular fracture. The patient was concerned that her primary doctor does not attend that facility, and she signed against medical advice. The patient had a drain at her left chest after mastectomy. Due to the chronic narcotic use and increased use of narcotics postoperatively, she became confused and was pulling at her NONA drain and surgical dressing. was concerned that he would be not able to take care of her and felt that the patient was not safe at home. The patient was brought to ED for evaluation and further management Laboratory workup revealed mild anemia. No leukocytosis. No fever. Stable vital signs. Left ankle x-ray was repeated and revealed distal fibular fracture. Left tibia-fibula x-ray revealed nondisplaced distal fibular fracture. The patient was admitted for further management. ADMITTING DIAGNOSES: 1. Left fibular fracture. 2. Frequent falls. 3. Unsteady gait and confusion. 4. Chronic dementia 5. Chronic narcotic use. 6. Hypertension. 7. Coronary artery disease, status post stent. 8. Left breast cancer with a recent left radical modified mastectomy. Hospital Course: The patient was admitted. Orthopedic surgeon consult was requested. According to orthopedic surgeon, the patient had a left ankle nondisplaced distal fibular fracture with intact mortise. Surgeon discussed treatment options with the patient and her and decided to treat the patient conservatively. The patient will be kept in a splint for 7 to 10 days after which it will be exchanged for well-padded cast for a total of four weeks of immobilization. After cast, she will start CAM walker , start her physical therapy, and progressive weightbearing. Per surgeon, the patient needs to elevate left lower extremity and ice it. Orthopedic surgeon cleared for discharge. Recommended to taper down pain medication. Psychiatrist had seen and evaluated the patient and diagnosed the patient with major depressive disorder and anxiety as well as the opioid dependency and medication-using behavior and delirium. She discontinued BuSpar, decreased dose of Lexapro, and exchanged Seroquel to Risperdal. Sitter was at the bedside for the patient's safety. Pain medications were tapered. Blood pressure was stable with the current regimen. General surgeon had seen and evaluated the patient. The patient still had a high output from drain and will need drain for at least another week. Surgeon felt it was unsafe for the patient to return home due to the patient pulling out the drain, which needs to be in place for at least an additional week, complicated by the current immobilization due to fibular fracture. Decision was made to transfer the patient to rehabilitation center for short time management. Placement was found and arrangements were made for transferring the patient to [facility]. The patient was stable for discharge. DISCHARGE DIAGNOSES: 1. Left ankle nondisplaced distal fibular fracture. 2. Frequent falls. 3. Left breast cancer with a recent left modified radical mastectomy. 4. Hypertension. 5. Coronary artery disease with a history of stent. 6. Major depressive disorder. 7. Anxiety. 8. Opioid dependency. 9. Delirium. DISCHARGE MEDICATIONS: See medication reconciliation list. Discharge Instructions: The patient was discharged to [facility]. Follow up with medical doctor at the facility. The patient to follow up with the orthopedic surgeon as an outpatient. Kulwinder Lagunas M.D. I have been assigned to dictate discharge summary on this account and I was not involved in the patient's management. [facility]: DALE JOB#: [id number] CC: KALE
== END 2017-03-09 14:38 | DRG 563 ==
LOC: EMR 19:34 → EDBEDREQ 19:43 → 4E 19:58 → EDBEDREQ 20:19 → 4E 03-07 00:48
DX: S82.831A Other fracture of upper and lower end of right fibula, initial encounter for closed fracture (principal); C50.912 Malignant neoplasm of unspecified site of left female breast; F03.90 Unspecified dementia, unspecified severity, without behavioral disturbance, psychotic disturbance, mood disturbance, and anxiety; F05 Delirium due to known physiological condition; F11.20 Opioid dependence, uncomplicated; I10 Essential (primary) hypertension; W01.0XXA Fall on same level from slipping, tripping and stumbling without subsequent striking against object, initial encounter; Y92.009 Unspecified place in unspecified non-institutional (private) residence as the place of occurrence of the external cause; R41.82 Altered mental status, unspecified; Z90.12 Acquired absence of left breast and nipple; Z91.81 History of falling; Z88.2 Allergy status to sulfonamides; F17.200 Nicotine dependence, unspecified, uncomplicated; I25.10 Atherosclerotic heart disease of native coronary artery without angina pectoris; Z95.5 Presence of coronary angioplasty implant and graft; R26.81 Unsteadiness on feet; Z98.84 Bariatric surgery status; F32.9 Major depressive disorder, single episode, unspecified; F41.9 Anxiety disorder, unspecified; K21.9 Gastro-esophageal reflux disease without esophagitis; R42 Dizziness and giddiness; Z76.5 Malingerer [conscious simulation]
CPT/HCPCS: 36415; 80053; 84443; 85025; 85610; 85730; 99285